=== PATIENT | female | born 1995 | race American Indian/Alaskan Native ===

== ENCOUNTER 2019-03-21 12:23 | Emergency (ER) | payer SELFPAY ==
[2019-03-21 12:44] VITALS: BP 141/96
--- NOTE | 2019-03-21 12:46 | Emergency Department Report ---
Minor Respiratory - HPI Chief Complaint: Sore Throat Stated Complaint: DIZZY/THROAT CLOSING Time Seen by Provider: 03/21/19 12:43 Duration: 1 Day Pain Location: Throat Severity: moderate Minor Respiratory: Yes Sore Throat, No Rhinorrhea, No Able to Tolerate Fluids, No Cough, No Sick Contacts, No Hemoptysis, No Chest Pain, No Shortness of Breath, No Fever Other History: 24 yo comes to er co sore throat. No fever. No cough. taking PO. controlling secretions. ED Review of Systems ROS: Stated complaint: DIZZY/THROAT CLOSING Other details as noted in HPI Comment: All other systems reviewed and negative ED Past Medical Hx - Past Medical History Previous Medical History?: No - Surgical History Past Surgical History?: Yes Additional Surgical History: node removal - Family History Family history: no significant - Social History Smoking Status: Never Smoker - Medications Home Medications: Home Medications Medication Instructions Recorded Confirmed Last Taken Type Amoxicillin [Trimox CAP] 500 mg PO Q8H #30 capsule 03/21/19 Unknown Rx Minor Respiratory Exam - Exam General: Vital signs noted. No distress. Alert and acting appropriately. HEENT: Yes Pharyngeal Erythema, Yes Pharyngeal Exudates (b), Yes Moist Mucous Membranes, No Rhinorrhea, No Conjuctival Injection, No Frontal Tenderness, No Maxillary Tenderness Ear: Neither TM Bulge, Neither TM Erythema, Neither EAC Pain, Neither EAC Discharge Neck: Yes Supple, No Adenopathy Lungs: Yes Good Air Exchange, No Wheezes, No Ronchi, No Stridor, No Cough, No Labored Respirations, No Retractions, No Use of Accessory Muscles, No Other Abnormal Lung Sounds Heart: Yes Regular, No Murmur Abdomen: Yes Normal Bowel Sounds, No Tenderness, No Peritoneal Signs Skin: No Rash, No Edema Neurologic: Alert and oriented, no deficits. Musculoskeletal: Unremarkable. ED Medical Decision Making - Medical Decision Making abc intact VSS Taking PO controlling secretions exudates bilateral Vital Signs (72 hours) 03/21/19 12:43 Temperature 98.7 F Pulse Rate 84 Respiratory 20 Rate Blood Pressure 141/96 O2 Sat by Pulse 98 Oximetry - Differential Diagnosis exudative pharyngitis Critical care attestation.: If time is entered above; I have spent that time in minutes in the direct care of this critically ill patient, excluding procedure time. ED Disposition Clinical Impression: Exudative pharyngitis Disposition: -01 TO HOME OR SELFCARE Is pt being admited?: No Does the pt Need Aspirin: No Condition: Stable Instructions: Pharyngitis (ED) Additional Instructions: motrin or tylenol for pain or fever med as ordered today do not stop early drink a lot of fluid Prescriptions: Amoxicillin [Trimox CAP] 500 mg PO Q8H #30 capsule Referrals: VANESA BUCKNER MD [Staff Physician] - 3-5 Days Time of Disposition: 12:44
== END 2019-03-21 12:45 | disposition home or self-care (01) ==
LOC: ED 12:23
DX: J02.9 Acute pharyngitis, unspecified (principal); Z79.899 Other long term (current) drug therapy
CPT/HCPCS: 99281

== ENCOUNTER 2019-03-22 23:51 | Emergency (ER) | payer SELFPAY ==
[2019-03-23] MEDS ORDERED: MORPHINE 4 MG/1 ML INJ IV ONE ×2 (00:57→02:46)
[2019-03-23] MEDS ORDERED: PENICILLIN G BENZATHINE 1.2 MILLION UNIT/2 ML INJ IM ONE (00:57)
[2019-03-23] MEDS ORDERED: dexAMETHasone 20 MG/5 ML VIAL IV ONE (00:57)
[2019-03-23] MEDS ORDERED: SODIUM CHLORIDE 0.9% 1000 ML 1,000 ML IV ONE (00:57)
--- NOTE | 2019-03-23 01:41 | Emergency Department Report ---
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 Patient was here several days ago and diagnosed with exudative pharyngitis. Patient was started on amoxicillin but she states she's been unable to swallow the medication. Patient is continued to have difficulty swallowing and pain is 8 out of 10 in severity. She states that she does have subjective fevers. Patient has left no swelling. She denies cough cold or congestion. Patient states she has not had anything to eat or drink in approximately 3 days secondary to pain. - Related Data Previous Rx's Medication Instructions Recorded Last Taken Type Amoxicillin [Trimox CAP] 500 mg PO Q8H #30 capsule 03/21/19 Unknown Rx HYDROcodone/ACETAMINOPHEN 15 ml PO Q6H PRN #150 solution 03/23/19 Unknown Rx [Hydrocodon-Acetamin 7.5-325/15] prednisoLONE [Prednisolone] 45 mg PO DAILY 5 Days solution 03/23/19 Unknown Rx Allergies Allergy/AdvReac Type Severity Reaction Status Date / Time No Known Allergies Allergy Unverified 03/21/19 12:25 ED Review of Systems ROS: Stated complaint: THROAT PAIN/CAN'T SWALLOW Other details as noted in HPI Comment: All other systems reviewed and negative ED Past Medical Hx - Past Medical History Previous Medical History?: Yes Additional medical history: Morbid Obesity - Surgical History Past Surgical History?: Yes Additional Surgical History: node removal - Social History Smoking Status: Never Smoker Substance Use Type: None - Medications Home Medications: Home Medications Medication Instructions Recorded Confirmed Last Taken Type Amoxicillin [Trimox CAP] 500 mg PO Q8H #30 capsule 03/21/19 Unknown Rx HYDROcodone/ACETAMINOPHEN 15 ml PO Q6H PRN #150 solution 03/23/19 Unknown Rx [Hydrocodon-Acetamin 7.5-325/15] prednisoLONE [Prednisolone] 45 mg PO DAILY 5 Days solution 03/23/19 Unknown Rx ED Physical Exam - General Limitations: No Limitations General appearance: alert, in no apparent distress - Head Head exam: Present: atraumatic, normocephalic - Eye Eye exam: Present: normal appearance - ENT ENT exam: Present: mucous membranes moist. Absent: normal orophraynx (patient with bilateral tonsillar swelling. Her uvula is midline. There is diffuse erythema with bilateral tonsillar exudates.) - Neck Neck exam: Present: normal inspection, lymphadenopathy - Respiratory Respiratory exam: Present: normal lung sounds bilaterally. Absent: respiratory distress, wheezes, rales, rhonchi - Cardiovascular Cardiovascular Exam: Present: regular rate, normal rhythm. Absent: systolic murmur, diastolic murmur, rubs, gallop - GI/Abdominal GI/Abdominal exam: Present: soft, normal bowel sounds - Extremities Exam Extremities exam: Present: normal inspection - Back Exam Back exam: Present: normal inspection - Neurological Exam Neurological exam: Present: alert, oriented X3 - Psychiatric Psychiatric exam: Present: normal affect, normal mood - Skin Skin exam: Present: warm, dry, intact, normal color. Absent: rash ED Course Vital Signs 03/23/19 00:00 Temperature 99.6 F Pulse Rate 104 H Respiratory 20 Rate Blood Pressure 136/72 O2 Sat by Pulse 95 Oximetry - Reevaluation(s) Reevaluation #1: 03/23/19 01:40 Reviewing the patient's chart patient does seem to have worsened over the last several days. ED Medical Decision Making - Medical Decision Making Patient meets [facility] criteria for treatment for exudative pharyngitis. Patient be given a liter of IV fluid for hydration. Decadron is given for inflammation. Patient given Bicillin so she does not have to continue to take antibiotic pills at home. Patient be discharged home with liquid medications for symptomatic relief. Critical care attestation.: If time is entered above; I have spent that time in minutes in the direct care of this critically ill patient, excluding procedure time. ED Disposition Clinical Impression: Exudative pharyngitis Disposition: DC-01 TO HOME OR SELFCARE Is pt being admited?: No Does the pt Need Aspirin: No Condition: Stable Instructions: Pharyngitis (ED) Referrals: VANESA BUCKNER MD [Staff Physician] - 3-5 Days Time of Disposition: 01:40
[2019-03-23] MEDS ORDERED: ONDANSETRON 4 MG/2 ML INJ ONE (02:02)
[2019-03-23] MEDS ORDERED: ONDANSETRON 4 MG/2 ML INJ IV ONE (02:45)
[2019-03-23 04:18] VITALS: BP 113/70
== END 2019-03-23 04:18 | disposition home or self-care (01) ==
LOC: ED 23:51
DX: J02.9 Acute pharyngitis, unspecified (principal); E66.01 Morbid (severe) obesity due to excess calories; Z68.43 Body mass index [BMI] 50.0-59.9, adult
CPT/HCPCS: 96372; 96374; 96375; 96376; 99282; J0561; J1100; J2270; J2405; J7030